=== PATIENT | male | born 1970 | race Caucasian/White ===

== ENCOUNTER → 2018-05-08 | Outpatient (CLI) | payer BC ==
[~2018-05-08] MED LIST: ASPI-252 PO; CELE200C PO; FENO145T30 PO; MULT1TAB6 PO; OLME1TAB23 PO; OMEG500C PO; OMEP40CA5 PO
--- NOTE | 2018-05-08 15:58 | RAD ---
EXAM: Renal sonogram. HISTORY: Renal insufficiency. TECHNIQUE: Sonographic imaging of the kidneys and bladder was performed. COMPARISON: None. FINDINGS: The right kidney measures 11.0 cm [id number] and the left kidney measures 10.8 cm [id number]. No solid or cystic renal lesion is seen. There is no hydronephrosis. The bladder volume is 181 cc. The ureteral jets are not seen during the exam. There is hepatic steatosis. IMPRESSION: Sonographically unremarkable kidneys. Electronically signed by: Tami Perez MD (05/08/2018 3:54 PM) [place] [id number]
== END | disposition home or self-care (01) ==
LOC: US 14:56
PROVIDERS: ATTEND Family Medicine
DX: K76.0 Fatty (change of) liver, not elsewhere classified (principal)
CPT/HCPCS: 76770

== ENCOUNTER → 2018-08-22 | Outpatient (CLI) | payer BC ==
[2018-08-22 13:41] LABS: ALBUMIN 2.5 g/dL (3.4-5.0); ALBUMIN/GLOBULIN RATIO 0.6 (1.0-1.7); CALCIUM 10.5 mg/dL (8.5-10.1); DIRECT BILIRUBIN 5.3 mg/dL (0.0-0.2); GFR 79.1; POTASSIUM 4.2 mmol/L (3.5-5.1); TOTAL BILIRUBIN 6.2 mg/dL (0.2-1.0)
== END | disposition home or self-care (01) ==
LOC: PMG 12:42
PROVIDERS: ATTEND Family Medicine
DX: R17 Unspecified jaundice (principal)
CPT/HCPCS: 36415; 80053; 82150; 82248; 82977; 83690; 86803

== ENCOUNTER 2018-08-23 06:29 | Emergency (ER) | payer BC ==
[~2018-08-23] VITALS: Ht 175.3 cm; Wt 108.9 kg
--- NOTE | 2018-08-23 07:11 | PHYS DOC ---
Past History Past Medical History: Diabetes, High Cholesterol, Hypertension Past Surgical History: Hip Replacement, Tonsillectomy Alcohol Use: Heavy Adult General Chief Complaint Chief Complaint: DEHYDRATION HPI HPI 48-year-old male presents with abnormal labs and concern for dehydration. The patient was told by his PCP late yesterday he should go to the hospital for rehydration. He does not know anymore about his lab results from that. 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 He states he has been jaundiced for the last 2 weeks. He denies any change in abdominal girth. He has never been tapped for ascites. He is coordinating detox and rehabilitation with his PCP. Patient denies fever or chills. He denies any pain or other concerns. Review of Systems Review of Systems Constitutional: Denies fever or chills [] Eyes: Denies change in visual acuity, redness, or eye pain [] HENT: Denies nasal congestion or sore throat [] Respiratory: Denies cough or shortness of breath [] Cardiovascular: No additional information not addressed in HPI [] GI: Denies abdominal pain, nausea, vomiting, bloody stools or diarrhea [] : Denies dysuria or hematuria [] Musculoskeletal: Denies back pain or joint pain [] Integument: Denies rash or skin lesions [] Neurologic: Denies headache, focal weakness or sensory changes [] Endocrine: Denies polyuria or polydipsia [] All other systems were reviewed and found to be within normal limits, except as documented in this note. Current Medications Current Medications Current Medications Medications (Trade) Dose Ordered Sig/[facility] Start Time Stop Time Status Last Admin Dose Admin Multivitamins/ Minerals 10 ml/ Folic Acid 1 mg/ Thiamine HCl 100 mg/Sodium Chloride 1,011.1 ml @ 1,000 mls/ hr 1X ONCE 08/23/18 07:30 08/23/18 08:30 Allergies Allergies Allergies Coded Allergies Type Severity Reaction Last Updated Verified No Known Drug Allergies 09/05/14 No Physical Exam Physical Exam Constitutional: Well developed, obese, well nourished, no acute distress. [] HENT: Normocephalic, atraumatic, bilateral external ears normal, oropharynx moist, no oral exudates, nose normal. [] Eyes: PERRLA, EOMI, conjunctiva normal, no discharge. [] Neck: Normal range of motion, no tenderness, supple, no stridor. [] Cardiovascular:Heart rate regular rhythm, no murmur [] Lungs & Thorax: Bilateral breath sounds clear to auscultation [] Abdomen: Bowel sounds normal, soft, no tenderness, no masses, no pulsatile masses. [] Skin: Jaundiced throughout the face and chest[] Back: No tenderness, no CVA tenderness. [] Extremities: No tenderness, no cyanosis, no clubbing, ROM intact, no edema. [] Neurologic: Alert and oriented X 3, normal motor function, normal sensory function, no focal deficits noted. [] Psychologic: Affect normal, judgement normal, mood normal. [] EKG EKG [] Radiology/Procedures Radiology/Procedures [] Course & Med Decision Making Course & Med Decision Making Pertinent Labs and Imaging studies reviewed. (See chart for details) The patient was given 1 L NS banana bag. His sodium is 126 and his lab from yesterday was 127. He is not have any mental status changes at this time. His hemoglobin is 7.1. The only previous for comparison in his chart is 4 years old and it was 13.6. The patient denies any active bleeding or dark stools. Patient also has extremity elevated liver enzymes and bilirubin. Review of his office lab results from yesterday shows it is direct bilirubin is also quite elevated. Given these facts, the patient needs further workup and likely specialty care by gastroenterology. I discussed this with the patient and offered to transfer him to [facility] for further workup, possible transfusion, and especially consult. He has agreed to transfer. He would prefer to go by private vehicle. His will drive him there. Given that he is not currently critical and his vitals are stable, I am okay with this transfer method. Dr. Forrest is the accepting physician. The patient drinks 8 -10 "drinks" of whiskey per day. His last drink was last night. Patient denies ever having difficulty with withdrawal. [] Dragon Disclaimer Dragon Disclaimer This electronic medical record was generated, in whole or in part, using a voice recognition dictation system. Departure Departure: Referrals: ANIYA MARIANO MD (PCP) MALLY CARDOSO DO Aug 23, 2018 07:11
[2018-08-23 07:25] LABS: BASO % 0 % (0-3); EOS # 0.1 x10^3/uL (0.0-0.7); EOS % 1 % (0-3); HEMATOCRIT 20.2 % (39.0-53.0); HEMOGLOBIN 7.1 g/dL (13.0-17.5); LYMPH # 0.5 x10^3/uL (1.0-4.8); LYMPH % 10 % (24-48); MEAN CORPUSCULAR HEMOGLOBIN 40 pg (25-35); MEAN CORPUSCULAR HGB CONC 35 g/dL (31-37); MEAN CORPUSCULAR VOLUME 115 fL (79-100); MONO # 0.8 x10^3/uL (0.0-1.1); MONO % 15 % (0-9); NEUT # 3.9 x10^3uL (1.8-7.7); NEUT % 75 % (31-73); PLATELET COUNT 231 x10^3/uL (140-400); RED BLOOD COUNT 1.75 x10^6/uL (4.30-5.70); RED CELL DISTRIBUTION WIDTH 14.6 % (11.5-14.5); WHITE BLOOD COUNT 5.3 x10^3/uL (4.0-11.0)
[2018-08-23] MEDS ORDERED: MVI, ADULT NO.4 WITH VIT K 10 ML, FOLIC ACID SYRINGE for ER 1 MG, THIAMINE INJ 100 MG i... IV ONE ×4 (07:30)
[2018-08-23 07:36] LABS: ALBUMIN 2.2 g/dL (3.4-5.0); ALBUMIN/GLOBULIN RATIO 0.5 (1.0-1.7); CALCIUM 9.7 mg/dL (8.5-10.1); GFR 79.1; POTASSIUM 4.1 mmol/L (3.5-5.1); TOTAL BILIRUBIN 5.7 mg/dL (0.2-1.0)
[2018-08-23 07:37] LABS: TOTAL PROTEIN 6.3 g/dL (6.4-8.2)
[2018-08-23 07:48] LABS: HYPOCHROMIA SLIGHT; PLT ESTIMATE ADEQUATE (ADEQUATE); POLYCHROMASIA SLIGHT
[2018-08-23 07:49] LABS: ANISOCYTOSIS SLIGHT; TARGET CELLS FEW
[2018-08-23 09:45] VITALS: BP 116/55
== END 2018-08-23 09:50 | disposition short-term general hospital (02) ==
LOC: ER 06:29
DX: E86.0 Dehydration (principal); E80.7 Disorder of bilirubin metabolism, unspecified; R79.89 Other specified abnormal findings of blood chemistry; E11.9 Type 2 diabetes mellitus without complications; E78.00 Pure hypercholesterolemia, unspecified; I10 Essential (primary) hypertension; F10.20 Alcohol dependence, uncomplicated; Y90.9 Presence of alcohol in blood, level not specified
CPT/HCPCS: 36415; 80053; 85025; 96365; 99284-25; 99285-25; J7030

== ENCOUNTER → 2018-09-15 | Outpatient (CLI) | payer BC ==
[2018-08-23 09:45] VITALS: BP 116/55
== END | disposition home or self-care (01) ==
LOC: PMG 16:04
PROVIDERS: ATTEND Family Medicine
DX: R74.8 Abnormal levels of other serum enzymes (principal)
CPT/HCPCS: 36415; 82248